=== PATIENT | female | born 2000 | race Caucasian/White ===

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

== ENCOUNTER 2021-01-27 14:59 | Emergency (ER) | payer OTHER, MEDICAID ==
[~2021-01-27] VITALS: Ht 167.6 cm; Wt 99.8 kg
[~2021-01-27 14:59] MED LIST changes: +BLISOVI 24 FE1 EACH PO; +METFORMIN HCL500 M3 PO
[2021-01-27] MEDS ORDERED: JARDIANCE10 MG PO (15:10)
[2021-01-27] MEDS ORDERED: TESTOSTERONE (15:11)
[2021-01-27 15:36] VITALS: BP 152/80
== END 2021-01-27 15:37 | disposition home or self-care (01) ==
LOC: M.ERS 14:59
DX: J06.9 Acute upper respiratory infection, unspecified (principal); F41.9 Anxiety disorder, unspecified; F32.9 Major depressive disorder, single episode, unspecified; F90.9 Attention-deficit hyperactivity disorder, unspecified type; E11.9 Type 2 diabetes mellitus without complications; E03.9 Hypothyroidism, unspecified; Z87.42 Personal history of other diseases of the female genital tract; Z79.899 Other long term (current) drug therapy; Z91.018 Allergy to other foods; Z88.1 Allergy status to other antibiotic agents; Z88.8 Allergy status to other drugs, medicaments and biological substances